=== PATIENT | female | born 2005 | race Caucasian/White ===

== ENCOUNTER 2025-04-11 12:31 | Emergency (ER) | payer MEDICAID, SELFPAY ==
[2025-04-11 12:36] VITALS: BP 150/89; PULSE 132; RESP 18; TEMP 37.2; O2SAT 97
[2025-04-11 13:02] LABS: Abs Immature Grans 0.03 10^3/uL (0.0-0.06); HCT 37.7 % (36.0-46.0); HGB 12.8 g/dL (11.2-15.7); Immature Grans % 0.3 %; MCH 28.6 pg (27.0-33.0); MCHC 34.0 % (32.0-36.0); MCV 84 fL (80-95); MPV 8.8 fL (8.0-11.0); Platelet Count 302 10^3/uL (130-400); RBC 4.47 10^6/uL (3.93-5.22); RDW 12.1 % (11.7-14.6); RDW-SD 36.7 fL; WBC 9.09 10^3/uL (4.4-10.8)
[2025-04-11 13:20] LABS: ALT 41 U/L (10-49); AST 27 U/L (<34); Albumin 5.0 g/dL (3.4-5.0); Alkaline Phosphatase 65 U/L (46-116); Anion Gap 12.1 mmol/L (3-11); BUN 8 mg/dL (9-23); Bilirubin, Total 0.40 mg/dL (0.2-1.2); CO2 23.9 mmol/L (20.0-31.0); Calcium 9.6 mg/dL (8.3-10.6); Chloride 104 mmol/L (98-107); Glucose 97 mg/dL (74-106); Potassium 3.7 mmol/L (3.5-5.1); Sodium 140 mmol/L (136-145); Total Protein 7.9 g/dL (5.7-8.2)
[2025-04-11 13:41] LABS: HCG Quant, Pregnancy 12338 mIU/mL (1.5-4.2)
--- NOTE | 2025-04-11 14:17 | ED.GENADUL_ITS ---
Discharge Plan Disposition Patient Disposition: Home Condition: Stable Discharge Details Clinical Impression: Incomplete Primary Care Provider: Unknown,Unknown ED Provider: Erasmo Salgado Home Meds and New Rx's Prescriptions: No Action No Known Home Meds Discharge Instructions Instructions: Loss (Miscarriage) ED Additional Instructions: You were seen in the emergency department for your vaginal bleeding in early . It is likely that you had a miscarriage though this needs to be confirmed with further serial testing of your hCG hormone, there was some clotting present in the vaginal vault with an open cervix which makes miscarriage more likely but please follow-up with women's wellness for serial testing as well as care as you are trying to conceive, please return for any severe increase in bleeding or any dizziness or severe pelvic pain. Stand Alone Forms: Portal Information Referrals: [facility] [Provider Group] Discharge Data Discharge Date/Time-TO BE ENTERED AT DEPARTURE: 04/11/25 15:30 HPI General Date/Time Provider Initiated Documentation: 04/11/25 12:37 . HPI Narrative: 19 year-old female presents to ED today by POV/ambulating with her spouse with a chief complaint of vaginal bleeding, in the setting of early , has not seen OBGYN yet- estimates 6 weeks G1PAL0 with onset of some heavier bleeding around 1100- now less so. Quality described as not painful, no radiation to fever, dysuria, continued heavy bleeding, dizziness. Severity is described as mild. Palliating factors include nothing attempted. Provoking factors include nothing specific. Patient not anticoagulated. Related Data Home Medications ?Medication ?Instructions ?Recorded ?Confirmed Unknown [No Known Home Meds] 04/11/25 1 06/13/24 Allergies Allergy/AdvReac Type Severity Reaction Status Date / Time No Known Allergies Allergy Unverified 04/13/25 13:19 General Stated Complaint: UNDERWRITING CLERK SRINIVAS: 2 Review of Systems All systems reviewed & are unremarkable except as noted in HPI and below Exam Narrative Exam Narrative: GENERAL APPEARANCE: Well-nourished, non-toxic, awake and alert, atraumatic, no acute distress. SKIN: Warm, pink, dry, intact, without rashes/lesions/ulcerations. HEAD: Normocephalic, atraumatic, normal hair distribution for gender/age. EYES: Normal conjunctiva, no exudates on lids/lashes. ENT: Nares patent, no circumoral cyanosis, no facial swelling NECK: Supple, trachea midline, painless cervical ROM. LUNGS/CHEST: Non-labored respirations, normal A/P diameter, symmetrical expansion, no chest wall deformity HEART (CV/PV): No peripheral edema, no JVD. ABDOMEN: Soft, non-distended, no guarding, nonacute abdomen, mild lower abd ominal tenderness Pelvic: see Dr. Abdi's note MSK: Normal ROM, no swelling/deformity to bilateral UEs or LEs, moving all extremities without weakness, no cyanosis, spine midline without tenderness, normal curvature. NEURO: Mental Status AAOx4 - alert to person, place, time, events No facial droop, no forehead involvement. Motor: No focal weakness - strength 5/5 in bilateral UEs and LEs, proximal and distal, symmetric. Sensory: sensation intact to light touch globally. Gait normal: patient ambulated without ataxia into ED room. PSYCH: euthymic, cooperative, pleasant, appropriate speech Course Vital Signs Vital signs: Vital Signs Temperature 37.2 C 04/11/25 12:36 Pulse 132 H 04/11/25 12:36 Respiratory Rate 18 04/11/25 12:36 Blood Pressure 150/89 H 04/11/25 12:36 Pulse Oximetry 97 04/11/25 12:36 Temperature 37.2 C 04/11/25 12:36 Temperature Source Tympanic 04/11/25 12:36 Pulse 132 H 04/11/25 12:36 Respiratory Rate 18 04/11/25 12:36 Blood Pressure 150/89 H 04/11/25 12:36 Pulse Oximetry 97 04/11/25 12:36 Oxygen Delivery Method Room Air 04/11/25 12:36 Oxygen Flow Rate 0 04/11/25 12:36 Pain Level 2 04/11/25 12:36 Lab/Test Results Lab/Test Results: Laboratory Tests Range/Units 04/11/25 12:54 WBC (4.4-10.8) 10^3/uL 9.09 RBC (3.93-5.22) 10^6/uL 4.47 Hgb (11.2-15.7) g/dL 12.8 Hct (36.0-46.0) % 37.7 MCV (80-95) fL 84 MCH (27.0-33.0) pg 28.6 MCHC (32.0-36.0) % 34.0 RDW (11.7-14.6) % 12.1 Plt Count (130-400) 10^3/uL 302 MPV (8.0-11.0) fL 8.8 Immature Gran % % 0.3 Neutrophils % % 68.9 Lymphocytes % % 20.7 Monocytes % % 8.0 Eosinophils % % 1.9 Basophils % % 0.2 Nucleated RBC % (0.0-0.3) % 0.0 Absolute Neutrophils (1.2-6.7) 10^3/uL 6.26 Absolute Lymphocytes (1.2-3.4) 10^3/uL 1.88 Absolute Monocytes (0.1-0.8) 10^3/uL 0.73 Absolute Eosinophils (0.0-0.7) 10^3/uL 0.17 Absolute Basophils (0.0-0.2) 10^3/uL 0.02 Sodium (136-145) mmol/L 140 Potassium (3.5-5.1) mmol/L 3.7 Chloride (98-107) mmol/L 104 Carbon Dioxide (20.0-31.0) mmol/L 23.9 Anion Gap (3-11) mmol/L 12.1 H BUN (9-23) mg/dL 8 L Creatinine (0.55-1.02) mg/dL 0.51 L Est GFR (CKD-EPI 2020) (mL/min/1.73m2) 151.12 Glucose (74-106) mg/dL 97 Calcium (8.3-10.6) mg/dL 9.6 Total Bilirubin (0.2-1.2) mg/dL 0.40 AST (<34) U/L 27 ALT (10-49) U/L 41 Alkaline Phosphatase (46-116) U/L 65 Total Protein (5.7-8.2) g/dL 7.9 Albumin (3.4-5.0) g/dL 5.0 HCG, Quant (1.5-4.2) mIU/mL 92385 H ABO/Rh O Negative Antibody Screen NEGATIVE Medical Decision Making This dictation utilizes [id number] dictation software and may contain unedited grammatical errors. 19 year-old female presents to ED today by POV/ambulating with her spouse with a chief complaint of vaginal bleeding, in the setting of early , has not seen OBGYN yet- estimates 6 weeks G1PAL0 with onset of some heavier bleeding around 1100- now less so. Quality described as not painful, no radiation to fever, dysuria, continued heavy bleeding, dizziness. Severity is described as mild. Palliating factors include nothing attempted. Provoking factors include nothing specific. Patients' medical history: RhD negative. Family and social history: noncontributory, is trying to conceive with her partner. Pertinent exam findings / vital signs include mild lower abdominal discomfort without peritoneal signs, pelvic exam performed by Dr. Abdi- patient preferred female provider- cervical os is open to finger Differential / pathologies of concern include threatened , incomplete . Diagnostic studies of: - CBC, CMP, type and screen, hCG quant. - CBC shows WBCs 9.09, Hgb 12 without any acute abnormality - CMP is unremarkable - Patient is type O- with negative antibody screen - hCG quant is 12,338 Interventions of: -Referred to Women's Health service. ED Course/Assessment/Plan: 19-year-old female G1PAL0 presents with bleeding in early , she had some heavy bleeding this morning. She estimates that she is 6 to 8 weeks with her last menstrual period around 10. She has less bleeding on self check when she toileted here in the ER, she has never had a pelvic exam and prefers a female provider some Dr. Chen same arm performed that aspect, she had some bleeding and an open cervical os but her hCG quantitative was to over 12,000, Recommended US tomorrow by Women's Health visit, and patient was referred to their service. Hopeful that she still has intrauterine , but did discuss open cervical os implications. Findings not consistent with hemorrhage, completed . Disposition of Incomplete Miscarriage. Patient verbalized understanding of the plan and return to ED criteria and engaged in shared decision making. Medical Records Medical records reviewed: Yes I reviewed the patient's medical records. Lab Data Lab results reviewed: Yes I reviewed the patient's lab results. Labs: Laboratory Tests Range/Units 04/11/25 12:54 WBC (4.4-10.8) 10^3/uL 9.09 RBC (3.93-5.22) 10^6/uL 4.47 Hgb (11.2-15.7) g/dL 12.8 Hct (36.0-46.0) % 37.7 MCV (80-95) fL 84 MCH (27.0-33.0) pg 28.6 MCHC (32.0-36.0) % 34.0 RDW (11.7-14.6) % 12.1 Plt Count (130-400) 10^3/uL 302 MPV (8.0-11.0) fL 8.8 Immature Gran % % 0.3 Neutrophils % % 68.9 Lymphocytes % % 20.7 Monocytes % % 8.0 Eosinophils % % 1.9 Basophils % % 0.2 Nucleated RBC % (0.0-0.3) % 0.0 Absolute Neutrophils (1.2-6.7) 10^3/uL 6.26 Absolute Lymphocytes (1.2-3.4) 10^3/uL 1.88 Absolute Monocytes (0.1-0.8) 10^3/uL 0.73 Absolute Eosinophils (0.0-0.7) 10^3/uL 0.17 Absolute Basophils (0.0-0.2) 10^3/uL 0.02 Sodium (136-145) mmol/L 140 Potassium (3.5-5.1) mmol/L 3.7 Chloride (98-107) mmol/L 104 Carbon Dioxide (20.0-31.0) mmol/L 23.9 Anion Gap (3-11) mmol/L 12.1 H BUN (9-23) mg/dL 8 L Creatinine (0.55-1.02) mg/dL 0.51 L Est GFR (CKD-EPI 2020) (mL/min/1.73m2) 151.12 Glucose (74-106) mg/dL 97 Calcium (8.3-10.6) mg/dL 9.6 Total Bilirubin (0.2-1.2) mg/dL 0.40 AST (<34) U/L 27 ALT (10-49) U/L 41 Alkaline Phosphatase (46-116) U/L 65 Total Protein (5.7-8.2) g/dL 7.9 Albumin (3.4-5.0) g/dL 5.0 HCG, Quant (1.5-4.2) mIU/mL 14442 H ABO/Rh O Negative Antibody Screen NEGATIVE PFSH All Active Problems (Updated 04/13/25 @ 17:08 by XAVIER Dawson) Incomplete (Acute) Rh D negative blood type (Acute) Bleeding in early (Acute) Social History Smoking/Tobacco Use Status: Never Smoking risk assessment performed?: Yes Alcohol Intake: never Drug use: Never Substance use type: does not use Housing: house Do you feel safe at home: Yes Do you feel safe in your relationship?: Yes
--- NOTE | 2025-04-11 15:24 | W.EDPROG ---
Date of service: 04/11/25 Time of Service: 15:00 Medical Decision Making I was asked to see this patient to perform a pelvic examination. Please see the primary provider's note for full details of this patient's history and physical. In brief, this is a 19-year-old female patient with an estimated 6 weeks gestation who experienced heavy vaginal bleeding this morning, likely representing miscarriage. Her vaginal bleeding has slowed but not stopped, I was asked to perform a pelvic examination as this patient feels most comfortable with a female provider. Pelvic examination supervised by Jg, and reveals normal external female genitalia. A partially open cervix (to fingertip) is visualized with a small amount of dark red blood and a small clot removed with ring forceps and gauze. There is no cervical motion tenderness on bimanual examination, no large-volume hemorrhage. No vaginal discharge is appreciated. The patient had an opportunity to have all questions regarding this procedure answered, based on the history and exam performed by myself and the primary provider and was concern for incomplete miscarriage. Follow-up with [facility] will be arranged by the primary provider. Penelope Abdi MD Discharge Plan Disposition Patient Disposition: Home Condition: Stable Discharge Details Clinical Impression: Incomplete miscarriage ED Provider: Erasmo Salgado Home Meds and New Rx's Prescriptions: No Action No Known Home Meds Discharge Instructions Instructions: Loss (Miscarriage) ED, Coping after loss Additional Instructions: You were seen in the emergency department for your vaginal bleeding in early . It is likely that you had a miscarriage though this needs to be confirmed with further serial testing of your hCG hormone, there was some clotting present in the vaginal vault with an open cervix which makes miscarriage more likely but please follow-up with women's wellness for serial testing as well as care as you are trying to conceive, please return for any severe increase in bleeding or any dizziness or severe pelvic pain. Stand Alone Forms: Portal Information Referrals: [facility] [Provider Group]
== END 2025-04-11 15:30 | disposition home or self-care (01) ==
LOC: ER 16:14
PROVIDERS: Emergency Provider Physician Assistant
DX: O03.4 Incomplete spontaneous abortion without complication (principal)
CPT/HCPCS: 99283 ×2; 00123; 80053; 86850; 86900; 86901; 81003; 84702; 85025

== ENCOUNTER 2025-04-13 14:02 | Outpatient (CLI) | payer MEDICAID, SELFPAY ==
[2025-04-18 09:08] LABS: HCG Quant, Pregnancy 16695 mIU/mL (1.5-4.2)
== END 2025-04-13 14:03 | disposition home or self-care (01) ==
LOC: LBO 14:05
PROVIDERS: PCP Psychiatry & Neurology Psychiatry; Visit Provider Obstetrics & Gynecology
DX: O20.9 Hemorrhage in early pregnancy, unspecified (principal)
CPT/HCPCS: 36415; 86850; 86900; 86901; 90384; 84702